=== PATIENT | female | born 1935 | race Caucasian/White ===

== ENCOUNTER 2018-02-17 17:44 | Inpatient (IN) ==
--- NOTE | 2018-02-17 19:05 | Internal Med History&Physical ---
Medical - H&P: [facility] Patient information: Note initiated : 02/17/18 at 7:05 pm Service Date, if different from initiated Date: [] Patient: Melly Bustos a 82 y/o F admitted on for fall, decreased appetite, weakness. Chief Complaint: [] Chief complaint: Fall History of present illness: Ms. Bustos is a 82 year old F with a history of advanced dementia who lives with her . She fell this afternoon and was discovered by her on the floor. Patient was alert and in no loose consciousness however the fall was not witnessed. She apparently lost balance. Patient is a poor historian due to underlying dementia exact precipitant could not be identified. She was brought to [facility] ER due to left hip pain. Initial workup in the ER revealed subcapital left hip fracture and orthopedics were consulted. Hospitalist service was consulted for admission. Evaluation patient is accompanied with her son Travis. He was able to anastomose the questions. Patient is essentially nonverbal. Her dementia has advanced significantly and patient is usually noncommunicative. She has recently stopped eating over the last few days. She only takes liquid diet including boost Ensure. Other than that son does not endorse recent fever, diarrhea, dysuria or headache. He does endorse to couple of falls in the last year and she is barely able to walk without assistance or using a grab bar Review of systems 10 point review systems was performed and is negative except as discussed above Medical - H&P: PMH Medical history: Advanced dementia history of CVA Pertinent family history: Nonrelevant Social history: Lives with her Accompanied by son Travis No History of smoking alcohol Medical - H&P: Meds Home Medications Medication Instructions Recorded Confirmed Type Clopidogrel 75 mg PO DAILY 04/02/15 02/17/18 History Donepezil HCl [Donepezil HCl Odt] 10 mg PO DAILY 04/02/15 02/17/18 History Aspirin [Adult Low Dose Aspirin EC] 81 mg PO DAILY 02/17/18 02/17/18 History Allergies Allergy/AdvReac Type Severity Reaction Status Date / Time No Known Drug Allergies Allergy Unverified 04/02/15 19:06 Medical - H&P: Exam - Constitutional Vitals: Pulse Resp BP Pulse Ox 85 23 H 128/94 97 02/17/18 18:16 02/17/18 18:31 02/17/18 18:31 02/17/18 18:16 General appearance: no acute distress Exam: 5 with symmetrical Oral cavity dry No eardischarge Head normocephalic S1 and S2 regular rhythm ESM grade 1 Diminished breath sounds bases abdomen soft Left lower extremity external rotated and shortened Skin no suspicious lesion Psych alert cooperative Neuro-advanced dementia, higher functions could not be checked Medical - H&P: Reslt - Labs CBC & Chem 7: 02/17/18 19:07 02/17/18 19:07 Medical - H&P: A/P (1) Closed left hip fracture Current visit: Yes Status: Acute * Left hip fracture orthopedics consulted. Keep nothing by mouth. Surgery in a.m. * Pain management on as needed opioids * Preop risk eval-based on our CR I [place] [employer] risk stratification patient is a high risk given history of CVA. No modifiable risk factor. Associated breast was discussed with son Travis. Surgery and anesthesia specific risks will be discussed by individual care providers. * History of dementia continue donepezil * History of CVA continue aspirin and Plavix post surgery * DVT prophylaxis SCDs Plan * Keep nothing by mouth after midnight * Review postop * Pain management
[2018-02-17 19:44] LABS: Basophils # (Auto) 0 K/mcL (0.0-0.3); Basophils % (Auto) 0.2 % (0.0-2.0); Eosinophils # (Auto) 0 K/mcL (0.0-0.7); Eosinophils % (Auto) 0.2 % (0.0-7.0); Granulocytes % (Auto) 84.9 % (38.0-78.0); Lymphocytes # (Auto) 1.3 K/mcL (1.5-4.8); Lymphocytes % (Auto) 10.4 % (15.5-49.0); Mean Cell Volume 78.8 fL (80.0-100.0); Mean Corpuscular HGB Conc 33.1 g/dL (31.0-36.0); Mean Corpuscular Hemoglobin 26.1 pg (26.0-34.0); Monocytes # (Auto) 0.5 K/mcL (0.1-0.9); Monocytes % (Auto) 4.3 % (1.0-12.0); Platelet Count 342 K/mcL (140-440); RBC 4.39 M/mcL (4.00-5.20); Red Cell Distribution Width 17.5 % (11.5-14.5)
[2018-02-17 20:04] LABS: ALT/SGPT 15 U/l (0-40); Albumin 4.3 gm/dL (3.2-5.2); Albumin/Globulin Ratio 1.7 (1.0-2.3); Alkaline Phosphatase 72 U/L (39-117); Blood Urea Nitrogen 13 mg/dl (8-23)
[2018-02-17] MEDS ORDERED: POTASSIUM CHLORIDE 20 MEQ PACKET PO PRN (20:29)
[2018-02-17] MEDS ORDERED: ONDANSETRON 4 MG/2 ML VIAL IV PRN (20:29)
[2018-02-17] MEDS ORDERED: MAGNESIUM SULFATE 2 GM/50 ML BAG IV PRN (20:29)
[2018-02-17] MEDS ORDERED: ACETAMINOPHEN 1,000 MG/100 ML BOTTLE IV PRN (20:29)
[2018-02-17] MEDS ORDERED: guaiFENesin/CODEINE 10 ML UDC PO PRN (20:29)
[2018-02-17] MEDS ORDERED: HYDROmorphone 2 MG/ML VIAL IV PRN (20:29)
[2018-02-17] MEDS ORDERED: HYDROmorphone 2 MG/ML VIAL ONE (20:40)
--- NOTE | 2018-02-17 20:48 | Emergency Department Note ---
General Adult HPI - General Chief complaint: Weakness Stated complaint: fall, decreased appetite, weakness Time Seen by Provider: 02/17/18 18:11 Source: patient, family, EMS Mode of arrival: EMS Limitations: no limitations - History of Present Illness HPI Narrative: 82-year-old female was at home when she tripped and fell landing on her left hip area. She is basically nonverbal with extensive vascular dementia for which she is on Plavix-she has had multiple small strokes in the past. Anyways she does normally walk with assistance of her only. She has been losing weight lately as well. Now she is unwilling to move her left hip and it appears that she has a small lump on the left side of her head as well. She is not able to give me meaningful history or review of systems all of this is from her and her son were here as well for the interview and exam-more extensive history not available as well as patient sees internal medicine Dr. Branham. She was brought in by EMS and they gave her 50 of fentanyl however this made her very sedated. This appears to have worn off and she is a little more agitated here from the pain - Related Data Home Medications Medication Instructions Recorded Confirmed Clopidogrel 75 mg PO DAILY 04/02/15 02/17/18 Donepezil HCl [Donepezil HCl Odt] 10 mg PO DAILY 04/02/15 02/17/18 Aspirin [Adult Low Dose Aspirin EC] 81 mg PO DAILY 02/17/18 02/17/18 Allergies Allergy/AdvReac Type Severity Reaction Status Date / Time No Known Drug Allergies Allergy Unverified 04/02/15 19:06 Review of Systems Limitations: ROS unobtainable due to patients medical condition Past Medical History - Past Medical History Attestation: Yes: The following information was validated with the patient. Medical history: Reports: CVA, dementia, other (dVT) - Social History smoking status: Former smoker Alcohol use: Reports: None Drug use: Reports: none Physical Exam Thin female resting. Somewhat agitated from pain. Not wanting to move her left hip. Normocephalic atraumatic except for dime sized hematoma left frontal area-no abrasion laceration or other concerning features. Conjunctive are clear sclerae nonicteric. No nasal discharge or congestion. She would not open her mouth for me. Neck is supple without lymphadenopathy thyromegaly or carotid bruit. Heart is regular rate and rhythm no murmur appreciated. Lungs are clear to auscultation bilaterally without wheezes rales rhonchi or respiratory distress. Abdomen is soft nontender nondistended. Palpation of the anterior left hip groin area does not elicit tenderness but any movement of the hip does cause significant wincing and guarding. She is able to move herself around in the bed albeit with some difficulty and pain. She is nonverbal and will not talk to me at all. She does not cooperate for my exam however she does not move away from any part of the exam except for the left hip. The left knee is flexed and so I am unable to compare legs or rotation. She has a flat affect and is awake spontaneously opening her eyes. PERRLA. baseline mentation per family Limitations: no limitations Course Vital Signs Pulse Rate 88 02/17/18 17:45 Respiratory Rate 14 02/17/18 17:45 Blood Pressure 142/80 02/17/18 17:45 Pulse Oximetry (%) 96 02/17/18 17:45 Pulse Rate 80 02/17/18 20:01 Respiratory Rate 14 02/17/18 20:01 Blood Pressure 125/61 02/17/18 20:01 Pulse Oximetry (%) 96 02/17/18 20:01 Medical Decision Making - Medical Records Medical records reviewed: Yes I reviewed the patient's medical records. - Lab Data Lab results reviewed: Yes I reviewed the patient's lab results. Result diagrams: 02/17/18 19:07 02/17/18 19:07 Lab Results 02/17/18 02/17/18 Range/Units 19:07 19:07 WBC 12.6 H (4.5-11.0) K/mcL RBC 4.39 (4.00-5.20) M/mcL Hgb 11.5 L (12.0-15.0) g/dL Hct 34.6 L (36.0-48.0) % MCV 78.8 L (80.0-100.0) fL MCH 26.1 (26.0-34.0) pg MCHC 33.1 (31.0-36.0) g/dL RDW 17.5 H (11.5-14.5) % Plt Count 342 (140-440) K/mcL MPV 8.7 (7.4-10.4) fL Gran % 84.9 H (38.0-78.0) % Lymph % (Auto) 10.4 L (15.5-49.0) % [place] % (Auto) 4.3 (1.0-12.0) % Eos % (Auto) 0.2 (0.0-7.0) % Baso % (Auto) 0.2 (0.0-2.0) % Gran # 10.7 H (1.8-8.0) K/mcL Lymph # (Auto) 1.3 L (1.5-4.8) K/mcL [place] # (Auto) 0.5 (0.1-0.9) K/mcL Eos # (Auto) 0 (0.0-0.7) K/mcL Baso # (Auto) 0 (0.0-0.3) K/mcL Sodium 130 L (133-145) mmol/L Potassium 4.0 (3.3-5.1) mmol/L Chloride 90 L (96-108) mmol/L Carbon Dioxide 24 (22-30) mmol/L Anion Gap 16.0 (8-16) BUN 13 (8-23) mg/dl Creatinine 1.3 H (0.6-1.1) mg/dl GFR Calculation 39 Glucose 127 H (70-105) mg/dL Calcium 9.1 (8.6-10.4) mg/dl Total Bilirubin 0.8 (0.0-1.0) mg/dL AST 23 (0-37) U/l ALT 15 (0-40) U/l Alkaline Phosphatase 72 (39-117) U/L Total Protein 6.8 (5.9-8.4) gm/dL Albumin 4.3 (3.2-5.2) gm/dL Globulin 2.5 (2.2-3.7) gm/dL Albumin/Globulin Ratio 1.7 (1.0-2.3) - Radiology Data Radiology results reviewed: Yes I reviewed the patient's radiology results. X-ray of the left hip shows subcapital fracture with anterior displacement Chest x-ray shows breast implants but no acute features Disposition Pt seen by POWERBUILDER/PA only: No Clinical Impression: Hip fracture, left Qualifiers: Encounter type: initial encounter Fracture type: closed Qualified Code(s): S72.002A - Fracture of unspecified part of neck of left femur, initial encounter for closed fracture Summary: Initially worked up for left hip pain secondary to tenderness with movement. She is at baseline in terms of her neurologic status and left head hematoma is very minor. She has not vomited. So, I did not work that up further. After getting her left hip x-ray back which showed fracture subcapital, I discussed the case with Dr. Bianchi, orthopedist health information administrator, who advised me to admit the patient to the hospitalist and he would consult. Because of her comorbidities and age he will discuss further treatment with family. I discussed case with Dr. Goel the hospitalist who agreed to accept patient in transfer. Preoperative laboratory chest x-ray are ordered in anticipation of possible surgery. I did give her a little bit of morphine to help with agitation and pain prior to transfer to the hospital room Disposition: Xfer As Inpt ([facility]) Condition: Fair
[2018-02-17] MEDS: 0.9 % SODIUM CHLORIDE 1,000 ML IV SCH (20:54)
[2018-02-17] MEDS ORDERED: traZODone HCL 50 MG TABLET PO PRN (21:22)
[2018-02-17 22:54] LABS: Appearance,Urine CLOUDY; Bacteria,Urine MANY /hpf (0); Bilirubin,Urine NEG (NEG); Color,Urine YELLOW; Glucose,Urine (UA) NEGATIVE (NEG); Leukocyte Esterase,Urine 500 /uL (NEG); Protein,Urine 100 mg/dL (NEG); Specific Gravity,Urine 1.015 (1.000-1.035); Urine Blood 0.03 mg/dL (<0.03); Urine RBC 25 /hpf (0-1); Urine Squamous Epithelial Cell 0 /hpf (0-4); Urine WBC > 182 /hpf (0-4); Urobilinogen,Urine NEG (NEG)
[2018-02-17] MEDS: 0.9 % SODIUM CHLORIDE 10 ML SYRINGE IV SCH (22:56)
[2018-02-17] MEDS: DONEPEZIL 10 MG TABLET PO SCH (22:56)
[2018-02-17] MEDS: DOCUSATE SODIUM 100 MG CAPSULE PO SCH (22:56)
[2018-02-17] MEDS: SENNOSIDES/DOCUSATE SODIUM 1 TAB TABLET PO SCH (22:56)
[2018-02-18 05:11] LABS: Mean Cell Volume 79.7 fL (80.0-100.0); Mean Corpuscular HGB Conc 32.9 g/dL (31.0-36.0); Mean Corpuscular Hemoglobin 26.2 pg (26.0-34.0); Platelet Count 304 K/mcL (140-440); RBC 4.05 M/mcL (4.00-5.20); Red Cell Distribution Width 17.4 % (11.5-14.5)
[2018-02-18 05:21] LABS: ALT/SGPT 14 U/l (0-40); Albumin 3.8 gm/dL (3.2-5.2); Albumin/Globulin Ratio 1.6 (1.0-2.3); Alkaline Phosphatase 64 U/L (39-117); Bilirubin,Direct < 0.2 mg/dL (0.0-0.3); Blood Urea Nitrogen 11 mg/dl (8-23); Gamma Glutamyl Transpeptidase 9 U/L (5-36); Uric Acid 4.9 mg/dL (2.5-8.0)
--- NOTE | 2018-02-18 07:14 | Consultation ---
DATE OF CONSULTATION: 02/17/2018 IDENTIFICATION: The patient is an 82-year-old lady with dementia. CHIEF COMPLAINT: Left hip fracture. HISTORY: The patient had a fall at home. She had acute onset of pain and inability to weightbear. She presents with a femoral neck fracture. We were called for definitive management. PAST MEDICAL HISTORY: Multiple strokes and dementia, and she is aphasic. PAST SURGICAL HISTORY: Noncontributory to this problem. MEDICATIONS: 1. Plavix. 2. Donepezil. 3. Aspirin. ALLERGIES: None. REVIEW OF SYSTEMS: She has apparently been in generally a good state of health and the balance of 10-point review of systems essentially negative. PHYSICAL EXAMINATION: GENERAL: She is awake and alert. She is aphasic. HEENT: Normocephalic, atraumatic. Pupils round, reactive to light. NECK: Supple without pain on range of motion. HEART: Regular. LUNGS: Clear. ABDOMEN: Benign. LOWER EXTREMITIES: Left lower extremity is shortened and there is pain with any motion. She seems to be grossly without significant neurovascular deficit. IMAGING: Her radiographs demonstrate a femoral neck fracture. IMPRESSION AND PLAN: Femoral neck fracture. We discussed the pros and cons of surgical intervention. Family leans towards proceeding with surgical intervention in the form of a hemiarthroplasty as discussed. Family will discuss this further with the father. We will plan to do this tomorrow. GDKsenia:kristina Job ID: [id number] Doc ID: [id number] Ganesh Bianchi MD
[2018-02-18] MEDS ORDERED: CIPROFLOXACIN 400 MG/200 ML BAG IV ONE (07:40)
--- NOTE | 2018-02-18 07:51 | XRay Report ---
CLINICAL INFORMATION: Preop COMPARISON: None. FINDINGS: Cardiomediastinal silhouette and pulmonary vessels are normal. Lung volumes are elevated suggesting chronic bronchitis. There are scattered small calcified granulomas. No infiltrates or other acute processes. No effusions. Calcified breast implants incidentally noted IMPRESSION: No acute disease - suspect mild chronic bronchitis Interpreted and Authenticated by: Mckinley Rodas 02/18/18
--- NOTE | 2018-02-18 08:05 | XRay Report ---
CLINICAL INFORMATION: Trauma COMPARISON: None. FINDINGS: A mildly impacted, minimally displaced subcapital fracture of the left hip is appreciated. No other osseous normality. Both SI and hip joint showing only mild degeneration. All discs are normal. IMPRESSION: Mildly impacted and minimally displaced acute subcapital fracture - left hip Interpreted and Authenticated by: Mckinley Rodas 02/18/18
[2018-02-18] MEDS: CLOPIDOGREL 75 MG TABLET PO SCH (08:15)
[2018-02-18] MEDS: MULTIVIT,THER IRON,CA,FA & MIN 1 TABLET PO SCH (08:15)
[2018-02-18] MEDS: DOCUSATE SODIUM 100 MG CAPSULE PO SCH ×2 (08:15→20:46)
[2018-02-18] MEDS: ASPIRIN 81 MG TAB.CHEW PO SCH (08:15)
[2018-02-18] MEDS: 0.9 % SODIUM CHLORIDE 10 ML SYRINGE IV SCH ×3 (08:15→23:11)
[2018-02-18] MEDS ORDERED: 0.9 % SODIUM CHLORIDE 250 ML IV SCH (08:30)
[2018-02-18 08:38] LABS: Anisocytosis 1+ (NONE SEEN); Lymphocytes % 8 % (15-49); Monocytes % (Manual) 3 % (1-12); Platelet Estimate NORMAL (NORMAL); RBC Morphology ABNORM (NORMAL); Segmented Neutrophils % 89 % (38-78)
[2018-02-18] MEDS ORDERED: ceFAZolin 1 GM VIAL IV SCH (13:30)
[2018-02-18] MEDS ORDERED: GENTAMICIN SULFATE 800 MG/20 ML VIAL IR ONE (13:46)
[2018-02-18] MEDS ORDERED: ONDANSETRON 4 MG/2 ML VIAL IV ONE (14:50)
[2018-02-18] MEDS ORDERED: MIDAZOLAM 2 MG/2 ML VIAL IV ONE (14:50)
[2018-02-18] MEDS ORDERED: fentaNYL 100 MCG/2 ML VIAL IV ONE (14:50)
[2018-02-18] MEDS ORDERED: PROPOFOL 200 MG/20 ML VIAL IV ONE (14:50)
[2018-02-18] MEDS ORDERED: LIDOCAINE HCL/PF 100 MG/5 ML SYRINGE IV ONE (14:50)
[2018-02-18] MEDS ORDERED: DEXAMETHASONE 10 MG/ML VIAL IV ONE (14:50)
--- NOTE | 2018-02-18 15:25 | Internal Med Progress Note ---
Medical - PN: Subj Patient information: Note initiated : 02/18/18 at 3:23 pm Service Date, if different from initiated Date: [] Patient: Melly Bustos a 82 y/o F admitted on 02/17/18 for Fall, Decreased Appetite, Weakness/Left Hip Fx. Chief Complaint: [] Interval history: Ms. Bustos is a 82 year old F with a history of advanced dementia who lives with her . She fell this afternoon and was discovered by her on the floor. Patient was alert and in no loose consciousness however the fall was not witnessed. She apparently lost balance. Patient is a poor historian due to underlying dementia exact precipitant could not be identified. She was brought to [place] ER due to left hip pain. Initial workup in the ER revealed subcapital left hip fracture and orthopedics were consulted. Hospitalist service was consulted for admission. Evaluation patient is accompanied with her son Travis. He was able to anastomose the questions. Patient is essentially nonverbal. Her dementia has advanced significantly and patient is usually noncommunicative. She has recently stopped eating over the last few days. She only takes liquid diet including boost Ensure. Other than that son does not endorse recent fever, diarrhea, dysuria or headache. He does endorse to couple of falls in the last year and she is barely able to walk without assistance or using a grab bar 02/18 Patient seen examined, no acute overnight issues, pt seen by ortho, family opted for surgical intervention, likely this afternoon. Pt was awake this afternoon, denies any complaints. Pertinent ROS: unable to assess - Constitutional Vitals: Vital Signs Temp Pulse Resp BP Pulse Ox 98.3 F 90 20 153/76 96 02/18/18 11:36 02/18/18 11:36 02/18/18 11:36 02/18/18 11:36 02/18/18 11:36 Period Temp Pulse Resp BP Sys/Vargas Pulse Ox Last 24 Hr 97.6 F-99.8 F 80-91 12-23 108-153/61-94 94-97 Intake and Output 02/18/18 02/18/18 02/18/18 05:59 13:59 21:59 Intake Total 200 / 200 Output Total 290 / 290 1075 / 1075 Balance -290 / -290 -875 / -875 Weight 114 lb Patient Weight 02/19/18 05:59 Weight 114 lb Intake & Output: Intake & Output 02/18/18 02/18/18 02/18/18 05:59 13:59 21:59 Intake Total 200 / 200 Output Total 290 / 290 1075 / 1075 Balance -290 / -290 -875 / -875 Weight 114 lb Intake: IV 200 / 200 Output: Urine Catheter Amount 290 / 290 275 / 275 Void Amount 800 / 800 Other: Meal NPO Exam: Constitutional; Afebrile, cooperative, alert, not in distress. Eyes- No icterus, , No periorbital swelling Neck- Midline trachea, supple Respiratory system: Air Entry equal on both sides, No crackles or wheezing, no rhonchi. ant exam CVS- Rate rhythm regular, S1,S2 heard, no gallop, no rub. Abdomen- Soft nontender abdomen, no organomegaly, no tenderness, no guarding or rigidity, CNC SERVICE ENGINEER- AOOx1, awake alerty obeys commands Medical - PN: Obj Da - Labs CBC & Chem 7: 02/18/18 03:45 02/18/18 03:45 Labs: Abnormal Lab Results 02/18/18 02/18/18 02/17/18 03:45 03:45 22:00 WBC 15.8 H Hgb 10.6 L Hct 32.3 L MCV 79.7 L RDW 17.4 H Gran % Lymph % (Auto) Gran # Lymph # (Auto) Seg Neutrophils % 89 H Lymphocytes % 8 L RBC Morphology Abnorm A Anisocytosis 1+ A Microcytosis 1+ A Sodium 129 L Chloride 94 L Creatinine Glucose 106 H Phosphorus 2.6 L Urine Protein 100 A Urine Ketones 20 A Urine Occult Blood 0.03 A Urine Nitrate Pos A Ur Leukocyte Esterase 500 A Urine RBC 25 H Urine WBC > 182 H Urine Bacteria Many A 02/17/18 02/17/18 19:07 19:07 WBC 12.6 H Hgb 11.5 L Hct 34.6 L MCV 78.8 L RDW 17.5 H Gran % 84.9 H Lymph % (Auto) 10.4 L Gran # 10.7 H Lymph # (Auto) 1.3 L Seg Neutrophils % Lymphocytes % RBC Morphology Anisocytosis Microcytosis Sodium 130 L Chloride 90 L Creatinine 1.3 H Glucose 127 H Phosphorus Urine Protein Urine Ketones Urine Occult Blood Urine Nitrate Ur Leukocyte Esterase Urine RBC Urine WBC Urine Bacteria Meds: Medications Acetaminophen (Tylenol) 650 mg PO Q4-6HP PRN PRN Reason: PAIN/FEVER > 101 Aspirin (Aspirin) 81 mg PO DAILY [facility] Last Admin: 02/18/18 08:15 Dose: Not Given Ciprofloxacin (Cipro) 500 mg PO BID [facility] Clopidogrel Bisulfate (Plavix) 75 mg PO DAILY [facility] Last Admin: 02/18/18 08:15 Dose: Not Given Docusate Sodium (Colace) 100 mg PO BID [facility] Last Admin: 02/18/18 08:15 Dose: Not Given Donepezil HCl (Aricept) 10 mg PO [facility] Last Admin: 02/17/18 22:56 Dose: Not Given Guaifenesin/Codeine Phosphate (Robitussin Ac) 10 ml PO Q4HP PRN PRN Reason: Cough Hydromorphone HCl (Dilaudid) 0 mg IV Q4HP PRN PRN Reason: PAIN LEVEL > 6 Magnesium Sulfate (Magnesium Sulfate) 2 gm in 50 mls @ 50 mls/hr IV UD PRN PRN Reason: MG = or < 1.7 Sodium Chloride (Sodium Chloride 0.9%) 1,000 mls @ 50 mls/hr IV .Q20H [facility] Stop: 02/20/18 09:21 Last Admin: 02/17/18 20:54 Dose: 50 mls/hr Acetaminophen (Ofirmev) 1,000 mg in 100 mls @ 200 mls/hr IV Q6HP PRN PRN Reason: PAIN/FEVER > 101 Sodium Chloride (Sodium Chloride 0.9%) 250 mls @ 20 mls/hr IV .[id number] [facility] Stop: 02/18/18 20:59 Last Admin: 02/18/18 12:07 Dose: Not Given Iron Carb/Multivit/[place]/Folic Acid (Multivitamin W/Minerals) 1 tab PO DAILY [facility] Last Admin: 02/18/18 08:15 Dose: Not Given Ondansetron HCl (Zofran) 4 mg IV Q4-6HP PRN PRN Reason: Nausea And Vomiting Polyethylene Glycol (Miralax) 17 gm PO DAILYP PRN PRN Reason: Constipation Potassium Chloride (Klor-Con) 40 meq PO DAILYP PRN PRN Reason: K+ < 3.5 Senna/Docusate Sodium (Senna Plus Tablet) 1 tab PO [facility] Last Admin: 02/17/18 22:56 Dose: Not Given Sodium Chloride (Saline Flush) 10 ml IV Q8 [facility] Last Admin: 02/18/18 08:15 Dose: Not Given Trazodone HCl (Desyrel) 50 mg PO HSP PRN PRN Reason: Insomnia Medical - PN: A/P - Time Spent With Patient Total time spent is greater than 50% in coordination of care (as documented) at patient's floor/unit and/or counseling patient: - Narrative A/P Narrative: A/P Left hip fracture- pt to have sx by othro today, pain management DVT prophylaxis per ortho Dementia- severe, resume home meds, pt is alert it seems and albe to answer some questions but not sure how much she comphrenends. at baseline not doing so well as per history, no family by bed side during my rounds h/o CVA- stable conitnue asp, plavix post op DVT scd npo for now Medical - PN: Qual - VTE Deep Vein Thrombosis/Pulmonary Embolism Present on Admission: No
[2018-02-18] MEDS ORDERED: IPRATROPIUM/ALBUTEROL 3 ML AMPUL.NEB NEB PRN (15:40)
[2018-02-18] MEDS ORDERED: ONDANSETRON 4 MG/2 ML VIAL IV PRN (15:40)
[2018-02-18] MEDS ORDERED: BENZOCAINE/MENTHOL 1 LOZENGE PO PRN (15:40)
[2018-02-18] MEDS ORDERED: diphenhydrAMINE 50 MG/ML VIAL IV PRN (15:40)
[2018-02-18] MEDS ORDERED: LACTATED RINGERS 250 ML IV PRN (15:40)
[2018-02-18] MEDS ORDERED: PROMETHAZINE 25 MG/ML VIAL IV PRN (15:40)
[2018-02-18] MEDS ORDERED: NALOXONE HCL 0.4 MG/ML VIAL IV PRN (15:40)
[2018-02-18] MEDS ORDERED: FLUMAZENIL 0.1 MG/ML ML IV PRN (15:40)
[2018-02-18] MEDS ORDERED: ACETAMINOPHEN 1,000 MG/100 ML BOTTLE IV ONE (15:40)
[2018-02-18] MEDS ORDERED: fentaNYL 100 MCG/2 ML VIAL IV PRN (15:40)
[2018-02-18] MEDS ORDERED: LACTATED RINGERS 1,000 ML IV SCH (15:45)
--- NOTE | 2018-02-18 17:06 | Brief Operative Note ---
Date of procedure: 02/18/18 Pre-op diagnosis: L hip fractue Post-op diagnosis: same Procedure: hemiarthroplasty Grafts/Implants: Yes (depuy) Anesthesia: GETA Complications: none Surgeon: Ganesh Bianchi Communications Equipment Operator: Cornell Hill Estimated blood loss (cc): 75 Condition: stable Disposition: PACU
--- NOTE | 2018-02-18 17:47 | XRay Report ---
CLINICAL INFORMATION: Follow-up subcapital fracture. COMPARISON: None. FINDINGS: Hip prostheses is anatomically aligned. Mild degenerative change noted in both SI and right hip joints. No osseous abnormality IMPRESSION: Negative Interpreted and Authenticated by: Mckinley Rodas 02/18/18
[2018-02-18] MEDS: 0.9 % SODIUM CHLORIDE 1,000 ML IV SCH (18:28)
[2018-02-18] MEDS: CIPROFLOXACIN 500 MG TABLET PO SCH (20:46)
[2018-02-18] MEDS: DONEPEZIL 10 MG TABLET PO SCH (20:46)
[2018-02-18] MEDS: SENNOSIDES/DOCUSATE SODIUM 1 TAB TABLET PO SCH ×2 (20:46)
[2018-02-18] MEDS ORDERED: HEPARIN 5,000 UNIT/ML VIAL SQ SCH (21:00)
[2018-02-19 05:27] LABS: Mean Cell Volume 79.1 fL (80.0-100.0); Mean Corpuscular HGB Conc 32.9 g/dL (31.0-36.0); Platelet Count 266 K/mcL (140-440); RBC 3.86 M/mcL (4.00-5.20)
[2018-02-19] MEDS: 0.9 % SODIUM CHLORIDE 10 ML SYRINGE IV SCH ×2 (05:40→13:37)
[2018-02-19 06:34] LABS: ALT/SGPT 16 U/l (0-40); Albumin 3.3 gm/dL (3.2-5.2); Albumin/Globulin Ratio 1.5 (1.0-2.3); Alkaline Phosphatase 62 U/L (39-117); Bilirubin,Direct 0.2 mg/dL (0.0-0.3); Blood Urea Nitrogen 15 mg/dl (8-23); Gamma Glutamyl Transpeptidase 7 U/L (5-36); Uric Acid 4.2 mg/dL (2.5-8.0)
--- NOTE | 2018-02-19 07:05 | Operative Note ---
DATE OF OPERATION: 02/18/2018 PREOPERATIVE DIAGNOSIS: Left transcervical/subcapital femoral neck fracture, displaced. POSTOPERATIVE DIAGNOSIS: Left transcervical/subcapital femoral neck fracture, displaced. OPERATION PROPOSED: Left hip hemiarthroplasty. OPERATION PERFORMED: Left hip hemiarthroplasty. OPERATING SURGEON: Juan M Bianchi MD CSR: Cornell Hill PA-C INDICATIONS: This is a lady with a displaced femoral neck fracture. We have reviewed treatment options and elected to proceed with a hemiarthroplasty. OPERATION IN DETAIL: Informed consent was obtained. She was taken to the operating room where she was provided with appropriate anesthetic and prophylactic antibiotics. She was carefully positioned. Her hip was prepped sterilely. A standard posterior approach to the hip was performed. I dissected through the iliotibial band. I cut and released short external rotators. I cut and T'd the hip capsule. I then refined the femoral neck cut, 1 cm above the lesser trochanter. I then sequentially reamed and broached. I then prepared the canal and placed a distal faulkner restrictor. A [place] stem size [address]. I trialed head and neck components and then reduced into place a head ball with a -3 neck. The hip seemed quite stable. I irrigated thoroughly. I repaired the hip capsule. I closed the iliotibial band with #1 Vicryl and a running Stratafix suture. Wounds were irrigated additionally. I closed the skin with 2-0 inverted deep dermal and louisa. Procedure was tolerated well. No complications. Estimated blood loss is 50 mL. GDD:kristina Job ID: [id number] Doc ID: [id number] Ganesh Bianchi MD
[2018-02-19 07:55] LABS: Anisocytosis 1+ (NONE SEEN); Band Neutrophils % 4 % (0-10); Hypochromasia 1+ (NONE SEEN); Lymphocytes % 1 % (15-49); Monocytes % (Manual) 6 % (1-12); Platelet Estimate NORMAL (NORMAL); RBC Morphology ABNORM (NORMAL); Segmented Neutrophils % 89 % (38-78)
[2018-02-19] MEDS: CIPROFLOXACIN 500 MG TABLET PO SCH ×2 (09:17→21:21)
[2018-02-19] MEDS: MULTIVIT,THER IRON,CA,FA & MIN 1 TABLET PO SCH (09:17)
[2018-02-19] MEDS: DOCUSATE SODIUM 100 MG CAPSULE PO SCH ×2 (09:18→21:21)
[2018-02-19] MEDS: ACETAMINOPHEN 325 MG TABLET PO PRN (09:18)
[2018-02-19] MEDS: ASPIRIN 81 MG TAB.CHEW PO SCH (09:19)
[2018-02-19] MEDS: CLOPIDOGREL 75 MG TABLET PO SCH (09:20)
[2018-02-19] MEDS ORDERED: HYDROcodone/APAP 5/325MG TABLET PO PRN (09:24)
--- NOTE | 2018-02-19 11:05 | Internal Med Progress Note ---
Medical - PN: Subj Patient information: Note initiated : 02/19/18 at 11:03 am Service Date, if different from initiated Date: [] Patient: Melly Bustos a 82 y/o F admitted on 02/17/18 for Fall, Decreased Appetite, Weakness/Left Hip Fx. Chief Complaint: [] Interval history: Ms. Bustos is a 82 year old F with a history of advanced dementia who lives with her . She fell this afternoon and was discovered by her on the floor. Patient was alert and in no loose consciousness however the fall was not witnessed. She apparently lost balance. Patient is a poor historian due to underlying dementia exact precipitant could not be identified. She was brought to [place] ER due to left hip pain. Initial workup in the ER revealed subcapital left hip fracture and orthopedics were consulted. Hospitalist service was consulted for admission. Evaluation patient is accompanied with her son Travis. He was able to anastomose the questions. Patient is essentially nonverbal. Her dementia has advanced significantly and patient is usually noncommunicative. She has recently stopped eating over the last few days. She only takes liquid diet including boost Ensure. Other than that son does not endorse recent fever, diarrhea, dysuria or headache. He does endorse to couple of falls in the last year and she is barely able to walk without assistance or using a grab bar 02/18 Patient seen examined, no acute overnight issues, pt seen by ortho, family opted for surgical intervention, likely this afternoon. Pt was awake this afternoon, denies any complaints. 02/19 patient seen examined, no acute overnight issues, pt sitting in chair had her breakfast, post op day 1 Denies any complaints, able to speak and follow some commands start on lovenox low dose 30mg daily for DVT prophylaxis, working with PT ortho following cipro for UTI cultures pending. Pertinent ROS: Denies headache, dizziness Denies chest pain, palpitations Denies cough or shortness of breath Denies abdominal pain, nausea or vomiting. - Constitutional Vitals: Vital Signs Temp Pulse Resp BP Pulse Ox 98.7 F 108 H 20 115/78 97 02/19/18 08:31 02/19/18 08:31 02/19/18 08:31 02/19/18 08:31 02/19/18 08:31 Period Temp Pulse Resp BP Sys/Vargas Pulse Ox Last 24 Hr 97.6 F-98.7 F 67-108 11-20 93-164/58-82 94-100 Intake and Output 02/18/18 02/19/18 02/19/18 21:59 05:59 13:59 Intake Total 1940 / 1940 150 / 150 Output Total 200 / 200 450 / 450 Balance 1740 / 1740 -450 / -450 150 / 150 Weight 116 lb Intake & Output: Intake & Output 02/18/18 02/19/18 02/19/18 21:59 05:59 13:59 Intake Total 1940 / 1940 150 / 150 Output Total 200 / 200 450 / 450 Balance 1740 / 1740 -450 / -450 150 / 150 Weight 116 lb Intake: IV 1700 / 1700 Sodium Chloride 0.9% 1,000 ml @ 1000 / 1000 50 mls/hr IV .Q20H [facility] Rx#: [id number] Oral 240 / 240 150 / 150 Output: Urine Catheter Amount 450 / 450 Estimated Blood Loss 200 / 200 Other: Meal Breakfast Percent of Meal Consumed 75% Exam: Constitutional; Afebrile, cooperative, alert, not in distress. Respiratory system: Air Entry equal on both sides, No crackles or wheezing, no rhonchi. CVS- Rate rhythm regular, S1,S2 heard, no gallop, no rub. Abdomen- Soft nontender abdomen, no organomegaly, no tenderness, no guarding or rigidity, SALESPERSON HEARING AIDS- AOOx1, moving all extremities, no gross focal deficit noted. Medical - PN: Obj Da - Labs CBC & Chem 7: 02/19/18 03:40 02/19/18 03:40 Labs: Abnormal Lab Results 02/19/18 02/19/18 02/18/18 03:40 03:40 03:45 WBC 15.9 H RBC 3.86 L Hgb 10.0 L Hct 30.5 L MCV 79.1 L RDW 18.0 H Gran % Lymph % (Auto) Gran # Lymph # (Auto) Seg Neutrophils % 89 H Lymphocytes % 1 L RBC Morphology Abnorm A Hypochromasia 1+ A Anisocytosis 1+ A Microcytosis 1+ A Sodium 131 L 129 L Chloride 95 L 94 L Carbon Dioxide 21 L Creatinine Glucose 106 H Phosphorus 2.0 L 2.6 L Lactate Dehydrogenase 258 H Total Protein 5.5 L Urine Protein Urine Ketones Urine Occult Blood Urine Nitrate Ur Leukocyte Esterase Urine RBC Urine WBC Urine Bacteria 02/18/18 02/17/18 02/17/18 03:45 22:00 19:07 WBC 15.8 H RBC Hgb 10.6 L Hct 32.3 L MCV 79.7 L RDW 17.4 H Gran % Lymph % (Auto) Gran # Lymph # (Auto) Seg Neutrophils % 89 H Lymphocytes % 8 L RBC Morphology Abnorm A Hypochromasia Anisocytosis 1+ A Microcytosis 1+ A Sodium 130 L Chloride 90 L Carbon Dioxide Creatinine 1.3 H Glucose 127 H Phosphorus Lactate Dehydrogenase Total Protein Urine Protein 100 A Urine Ketones 20 A Urine Occult Blood 0.03 A Urine Nitrate Pos A Ur Leukocyte Esterase 500 A Urine RBC 25 H Urine WBC > 182 H Urine Bacteria Many A 02/17/18 19:07 WBC 12.6 H RBC Hgb 11.5 L Hct 34.6 L MCV 78.8 L RDW 17.5 H Gran % 84.9 H Lymph % (Auto) 10.4 L Gran # 10.7 H Lymph # (Auto) 1.3 L Seg Neutrophils % Lymphocytes % RBC Morphology Hypochromasia Anisocytosis Microcytosis Sodium Chloride Carbon Dioxide Creatinine Glucose Phosphorus Lactate Dehydrogenase Total Protein Urine Protein Urine Ketones Urine Occult Blood Urine Nitrate Ur Leukocyte Esterase Urine RBC Urine WBC Urine Bacteria Meds: Medications Acetaminophen (Tylenol) 650 mg PO Q4-6HP PRN PRN Reason: PAIN/FEVER > 101 Last Admin: 02/19/18 09:18 Dose: 650 mg Hydrocodone Bitart/Acetaminophen ([place] 5/325mg) 1 tab PO Q4HP PRN PRN Reason: moderate pain Aspirin (Aspirin) 81 mg PO DAILY [facility] Last Admin: 02/19/18 09:19 Dose: 81 mg Ciprofloxacin (Cipro) 500 mg PO BID [facility] Last Admin: 02/19/18 09:17 Dose: 500 mg Clopidogrel Bisulfate (Plavix) 75 mg PO DAILY [facility] Last Admin: 02/19/18 09:20 Dose: 75 mg Docusate Sodium (Colace) 100 mg PO BID [facility] Last Admin: 02/19/18 09:18 Dose: 100 mg Donepezil HCl (Aricept) 10 mg PO HS [facility] Last Admin: 02/18/18 20:46 Dose: 10 mg Enoxaparin Sodium (Lovenox) 30 mg SQ DAILY [facility] Guaifenesin/Codeine Phosphate (Robitussin Ac) 10 ml PO Q4HP PRN PRN Reason: Cough Hydromorphone HCl (Dilaudid) 0 mg IV Q4HP PRN PRN Reason: PAIN LEVEL > 6 Magnesium Sulfate (Magnesium Sulfate) 2 gm in 50 mls @ 50 mls/hr IV UD PRN PRN Reason: MG = or < 1.7 Sodium Chloride (Sodium Chloride 0.9%) 1,000 mls @ 50 mls/hr IV .Q20H [facility] Stop: 02/20/18 09:21 Last Admin: 02/18/18 18:28 Dose: 50 mls/hr Acetaminophen (Ofirmev) 1,000 mg in 100 mls @ 200 mls/hr IV Q6HP PRN PRN Reason: PAIN/FEVER > 101 Iron Carb/Multivit/Take Away Worker/Folic Acid (Multivitamin W/Minerals) 1 tab PO DAILY [facility] Last Admin: 02/19/18 09:17 Dose: 1 tab Ondansetron HCl (Zofran) 4 mg IV Q4-6HP PRN PRN Reason: Nausea And Vomiting Polyethylene Glycol (Miralax) 17 gm PO DAILYP PRN PRN Reason: Constipation Potassium Chloride (Klor-Con) 40 meq PO DAILYP PRN PRN Reason: K+ < 3.5 Senna/Docusate Sodium (Senna Plus Tablet) 1 tab PO HS [facility] Last Admin: 02/18/18 20:46 Dose: Not Given Sodium Chloride (Saline Flush) 10 ml IV Q8 [facility] Last Admin: 02/19/18 05:40 Dose: Not Given Trazodone HCl (Desyrel) 50 mg PO HSP PRN PRN Reason: Insomnia Medical - PN: A/P - Time Spent With Patient Total time spent is greater than 50% in coordination of care (as documented) at patient's floor/unit and/or counseling patient: - Narrative A/P Narrative: A/P Left hip fracture- pt to have sx by othro today, pain adequately controlled, on tylenol, hydrocodone, prn dilaudid DVT - lovnoex ,30mg daily Dementia- severe home meds resumed, able to communicate somewhat, ST Eval UTI- on cipro, urine cx pending. h/o CVA- stable conitnue asp, plavix post op DVT scd Medical - PN: Qual - VTE Deep Vein Thrombosis/Pulmonary Embolism Present on Admission: No
[2018-02-19] MEDS: ENOXAPARIN 30 MG/0.3 ML SYRINGE SQ SCH (11:45)
--- NOTE | 2018-02-19 11:51 | Orthopedic Progress Note ---
Subjective Patient information: Note initiated : 02/19/18 at 11:49 am Service Date, if different from initiated Date: [] Patient: Melly Bustos 82 y/o F admitted on 02/17/18 for Fall, Decreased Appetite, Weakness/Left Hip Fx. Chief Complaint: [] no new ortho problems Principal diagnosis: hip fracture Objective Vital signs: Vital Signs Temp Pulse Pulse Resp BP Pulse Ox 02/19/18 11:34 97.1 F 87 18 119/71 96 02/19/18 08:31 98.7 F 108 H 20 115/78 97 02/19/18 04:00 97.6 F 92 H 18 122/80 95 02/18/18 23:55 97.7 F 88 16 106/68 94 02/18/18 23:13 72 18 98 02/18/18 19:03 98.3 F 68 18 100/60 97 02/18/18 18:48 71 96/60 96 02/18/18 18:33 72 107/61 97 02/18/18 18:18 82 130/76 98 02/18/18 18:15 75 124/76 97 02/18/18 18:00 68 98/61 98 02/18/18 17:45 68 93/58 97 02/18/18 17:30 67 101/61 97 02/18/18 17:15 75 131/80 96 02/18/18 17:02 97.6 F 78 16 134/76 96 02/18/18 17:00 79 134/76 96 02/18/18 16:47 98.2 F 76 16 159/73 95 02/18/18 16:40 83 14 144/69 96 02/18/18 16:33 90 14 146/75 97 02/18/18 16:28 95 H 16 148/79 97 02/18/18 16:23 97 H 15 164/78 97 02/18/18 16:18 92 H 15 162/66 100 02/18/18 16:13 93 H 13 157/82 100 02/18/18 16:08 68 11 L 113/60 99 02/18/18 16:03 98.1 F 67 12 124/61 99 Intake and Output 02/18/18 02/19/18 02/19/18 21:59 05:59 13:59 Intake Total 1940 / 1940 150 / 150 Output Total 200 / 200 450 / 450 Balance 1740 / 1740 -450 / -450 150 / 150 Intake: IV 1700 / 1700 Sodium Chloride 0.9% 1,000 ml @ 1000 / 1000 50 mls/hr IV .Q20H [facility] Rx#: [id number] Oral 240 / 240 150 / 150 Output: Urine Catheter Amount 450 / 450 Estimated Blood Loss 200 / 200 Other: Meal Breakfast Percent of Meal Consumed 75% Weight 116 lb Intake & Output: Intake & Output 02/18/18 02/19/18 02/19/18 21:59 05:59 13:59 Intake Total 1940 / 1940 150 / 150 Output Total 200 / 200 450 / 450 Balance 1740 / 1740 -450 / -450 150 / 150 Weight 116 lb Intake: IV 1700 / 1700 Sodium Chloride 0.9% 1,000 ml @ 1000 / 1000 50 mls/hr IV .Q20H [facility] Rx#: [id number] Oral 240 / 240 150 / 150 Output: Urine Catheter Amount 450 / 450 Estimated Blood Loss 200 / 200 Other: Meal Breakfast Percent of Meal Consumed 75% Dressing: Yes clean, Yes dry Weight bearing status: full Neurological exam IM: Yes neurovascular intact - Labs CBC & BMP: 02/19/18 03:40 02/19/18 03:40 Labs: Orthopedic Labs 02/18/18 10:17 POC PT 12.8 POC INR 1.1 02/19/18 02/18/18 02/17/18 03:40 03:45 19:07 Hgb 10.0 L 10.6 L 11.5 L Hct 30.5 L 32.3 L 34.6 L Assessment and Plan (1) Hip fracture, left mobilize dc planning Status: Acute Qualifiers: Encounter type: initial encounter Fracture type: closed Qualified Code(s) : S72.002A - Fracture of unspecified part of neck of left femur, initial encounter for closed fracture
[2018-02-19] MEDS: SENNOSIDES/DOCUSATE SODIUM 1 TAB TABLET PO SCH (21:21)
[2018-02-19] MEDS: DONEPEZIL 10 MG TABLET PO SCH (21:21)
[2018-02-20] MEDS: 0.9 % SODIUM CHLORIDE 10 ML SYRINGE IV SCH ×4 (00:38→20:25)
[2018-02-20 05:37] LABS: Mean Cell Volume 78.7 fL (80.0-100.0); Mean Corpuscular HGB Conc 33.1 g/dL (31.0-36.0); Platelet Count 273 K/mcL (140-440); RBC 3.64 M/mcL (4.00-5.20); Red Cell Distribution Width 17.9 % (11.5-14.5)
[2018-02-20 06:20] LABS: ALT/SGPT 16 U/l (0-40); Albumin 3.2 gm/dL (3.2-5.2); Albumin/Globulin Ratio 1.5 (1.0-2.3); Alkaline Phosphatase 77 U/L (39-117); Bilirubin,Direct < 0.2 mg/dL (0.0-0.3); Blood Urea Nitrogen 18 mg/dl (8-23); Gamma Glutamyl Transpeptidase 8 U/L (5-36)
[2018-02-20 07:48] LABS: Anisocytosis 1+ (NONE SEEN); Band Neutrophils % 1 % (0-10); Lymphocytes % 14 % (15-49); Monocytes % (Manual) 1 % (1-12); Ovalocytes FEW (NONE SEEN); Platelet Estimate NORMAL (NORMAL); RBC Morphology ABNORM (NORMAL); Segmented Neutrophils % 84 % (38-78)
[2018-02-20] MEDS: ACETAMINOPHEN 325 MG TABLET PO PRN (09:12)
[2018-02-20] MEDS: CIPROFLOXACIN 500 MG TABLET PO SCH (09:12)
[2018-02-20] MEDS: CLOPIDOGREL 75 MG TABLET PO SCH (09:12)
[2018-02-20] MEDS: MULTIVIT,THER IRON,CA,FA & MIN 1 TABLET PO SCH (09:12)
[2018-02-20] MEDS: ASPIRIN 81 MG TAB.CHEW PO SCH (09:12)
[2018-02-20] MEDS: ENOXAPARIN 30 MG/0.3 ML SYRINGE SQ SCH (09:12)
[2018-02-20] MEDS: DOCUSATE SODIUM 100 MG CAPSULE PO SCH ×2 (09:12→20:25)
--- NOTE | 2018-02-20 09:43 | Orthopedic Progress Note ---
Subjective Patient information: Note initiated : 02/20/18 at 9:38 am Service Date, if different from initiated Date: [] Patient: Melly Bustos 82 y/o F admitted on 02/17/18 for Fall, Decreased Appetite, Weakness/Left Hip Fx. Chief Complaint: [pain is 3-5 and not eating well but slow to progress with pt ] Principal diagnosis: hip fracture Objective Vital signs: Vital Signs Temp Pulse Resp BP Pulse Ox 02/20/18 07:36 98.5 F 98 H 24 H 130/71 95 02/20/18 03:13 98.8 F 93 H 16 105/68 96 02/20/18 00:00 98.4 F 90 16 115/66 96 02/19/18 20:00 98.4 F 110 H 18 115/59 96 02/19/18 16:04 98.1 F 97 H 18 130/74 96 02/19/18 11:34 97.1 F 87 18 119/71 96 Intake and Output 02/19/18 02/20/18 02/20/18 21:59 05:59 13:59 Intake Total 1040 / 1040 300 / 300 Output Total 2 2 Balance 1040 / 1040 298 / 298 -1 / -1 Intake: Oral 1040 / 1040 300 / 300 Output: # of times incontinent of urine 2 Other: # Voids 1 Weight 118 lb 8 oz Intake & Output: Intake & Output 02/19/18 02/20/18 02/20/18 21:59 05:59 13:59 Intake Total 1040 / 1040 300 / 300 Output Total 2 Balance 1040 / 1040 298 / 298 -1 / -1 Weight 118 lb 8 oz Intake: Oral 1040 / 1040 300 / 300 Output: # of times incontinent of urine / 2 Other: # Voids 1 Incision: Yes healing Incision clean and dry: Yes Dressing: Yes clean Weight bearing status: full Neurological exam IM: Yes alert, Yes altered, No oriented X3 (plan is to dc care center on thursday for a feww weeks.) Extremities exam IM: Yes Foot pink and warm (plan is to dc to care center on thursday) - Labs CBC & BMP: 02/20/18 03:50 02/20/18 03:50 Labs: Orthopedic Labs 02/18/18 10:17 POC PT 12.8 POC INR 1.1 02/20/18 02/19/18 02/18/18 03:50 03:40 03:45 Hgb 9.5 L 10.0 L 10.6 L Hct 28.6 L 30.5 L 32.3 L 02/17/18 19:07 Hgb 11.5 L Hct 34.6 L
[2018-02-20] MEDS ORDERED: 0.9 % SODIUM CHLORIDE 1,000 ML IV SCH (10:30)
[2018-02-20] MEDS ORDERED: IPRATROPIUM/ALBUTEROL 3 ML AMPUL.NEB NEB ONE (10:42)
[2018-02-20] MEDS ORDERED: LORazepam 2 MG/ML VIAL IV PRN (10:43)
[2018-02-20] MEDS: IPRATROPIUM/ALBUTEROL 3 ML AMPUL.NEB NEB SCH ×5 (10:49→23:10)
[2018-02-20] MEDS ORDERED: MAGNESIUM SULFATE 2 GM/50 ML BAG IV ONE (11:00)
[2018-02-20] MEDS: PANTOPRAZOLE 40 MG VIAL IV SCH ×2 (11:01→16:45)
[2018-02-20 11:05] LABS: Basophils # (Auto) 0 K/mcL (0.0-0.3); Basophils % (Auto) 0.2 % (0.0-2.0); Eosinophils # (Auto) 0 K/mcL (0.0-0.7); Eosinophils % (Auto) 0.2 % (0.0-7.0); Granulocytes % (Auto) 84.1 % (38.0-78.0); Lymphocytes # (Auto) 2.3 K/mcL (1.5-4.8); Lymphocytes % (Auto) 10.1 % (15.5-49.0); Mean Corpuscular HGB Conc 32.7 g/dL (31.0-36.0); Mean Corpuscular Hemoglobin 26.1 pg (26.0-34.0); Monocytes # (Auto) 1.3 K/mcL (0.1-0.9); Monocytes % (Auto) 5.4 % (1.0-12.0); Platelet Count 344 K/mcL (140-440); RBC 4.19 M/mcL (4.00-5.20); Red Cell Distribution Width 18.1 % (11.5-14.5)
[2018-02-20] MEDS: cefTRIAXone 1 GM VIAL IV SCH (11:13)
[2018-02-20] MEDS: levETIRAcetam 500 MG in 0.9 % SODIUM CHLORIDE 100 ML IV SCH ×2 (11:23→20:25)
[2018-02-20 11:25] LABS: ALT/SGPT 21 U/l (0-40); Albumin 3.6 gm/dL (3.2-5.2); Albumin/Globulin Ratio 1.4 (1.0-2.3); Alkaline Phosphatase 76 U/L (39-117); Bilirubin,Direct < 0.2 mg/dL (0.0-0.3); Blood Urea Nitrogen 20 mg/dl (8-23); Gamma Glutamyl Transpeptidase 8 U/L (5-36); Uric Acid 4.3 mg/dL (2.5-8.0)
--- NOTE | 2018-02-20 12:16 | Cat Scan Report ---
CLINICAL INFORMATION: Seizure - acute mental status change COMPARISON: None. TECHNIQUE: 2.5 mm helical slices were obtained in the skull base to vertex. Following reconstruction, axial reformatted images were reviewed at bone and parenchymal windows. The exam was performed using radiation dose optimization techniques including, but not limited to, automated exposure control, adjustment of the mA and/or kV according to patient size and use of iterative reconstruction technique. FINDINGS: The ventricles, sulci, fissures, and cisterns are symmetrically enlarged compatible with moderate atrophy - no extra-axial fluid collection or mass appreciated. Moderate chronic ischemic changes noted in the deep cerebral white matter. 1 cm remote lacunar infarcts in the right thalamus and 2 cm lacunar infarct in the left caudate nucleus anterior limb left internal capsule capsule. There is no intracerebral hemorrhage, mass effect or edema. Bone windows show no osseous abnormality. Mild left mastoiditis noted IMPRESSION: Moderate atrophy with chronic ischemic changes in the deep cerebral white matter and remote lacunar infarcts in the basal ganglia. No acute disease. Mild left mastoiditis Interpreted and Authenticated by: Mckinley Rodas 02/20/18
--- NOTE | 2018-02-20 14:36 | Internal Med Progress Note ---
Medical - PN: Subj Patient information: Note initiated : 02/20/18 at 2:33 pm Service Date, if different from initiated Date: [] Patient: Melly Bustos a 82 y/o F admitted on 02/17/18 for Fall, Decreased Appetite, Weakness/Left Hip Fx. Chief Complaint: [] Interval history: Ms. Bustos is a 82 year old F with a history of advanced dementia who lives with her . She fell this afternoon and was discovered by her on the floor. Patient was alert and in no loose consciousness however the fall was not witnessed. She apparently lost balance. Patient is a poor historian due to underlying dementia exact precipitant could not be identified. She was brought to [place] ER due to left hip pain. Initial workup in the ER revealed subcapital left hip fracture and orthopedics were consulted. Hospitalist service was consulted for admission. Evaluation patient is accompanied with her son Travis. He was able to anastomose the questions. Patient is essentially nonverbal. Her dementia has advanced significantly and patient is usually noncommunicative. She has recently stopped eating over the last few days. She only takes liquid diet including boost Ensure. Other than that son does not endorse recent fever, diarrhea, dysuria or headache. He does endorse to couple of falls in the last year and she is barely able to walk without assistance or using a grab bar 02/18 Patient seen examined, no acute overnight issues, pt seen by ortho, family opted for surgical intervention, likely this afternoon. Pt was awake this afternoon, denies any complaints. 02/19 patient seen examined, no acute overnight issues, pt sitting in chair had her breakfast, post op day 1 Denies any complaints, able to speak and follow some commands start on lovenox low dose 30mg daily for DVT prophylaxis, working with PT ortho following cipro for UTI cultures pending. 02/20 Pt seen examined, this AM was doing well, later in artur morning she became unreponsive ,stiff, with rolling of eyes backwards. slowly recovered, follwoed by significant vomiting, and food eaten yesterday also coming out. Head CT neg for acute issues pt prolactin elevated, clinically seizure IV keppra ordered NG tube placed given persistent vomiting, family at bedside, updated Pertinent ROS: unable. - Constitutional Vitals: Vital Signs Temp Pulse Resp BP Pulse Ox 97.5 F 81 14 118/75 97 02/20/18 12:46 02/20/18 12:46 02/20/18 12:46 02/20/18 12:46 02/20/18 12:46 Period Temp Pulse Resp BP Sys/Vargas Pulse Ox Last 24 Hr 97.5 F-98.8 F 57-110 14-24 104-130/59-75 94-97 Intake and Output 02/20/18 02/20/18 02/20/18 05:59 13:59 21:59 Intake Total 300 / 300 155 / 155 Output Total 2 / 2 102 / 102 Balance 298 / 298 53 / 53 Intake & Output: Intake & Output 02/20/18 02/20/18 02/20/18 05:59 13:59 21:59 Intake Total 300 / 300 155 / 155 Output Total 2 / 2 102 / 102 Balance 298 / 298 53 / 53 Intake: IV 155 / 155 Keppra 500 mg In Sodium 105 / 105 Chloride 0.9% 100 ml @ 200 mls/ hr IV Q12 [facility] Rx#:[id number] Oral 300 / 300 Output: Void Amount 100 / 100 # of times incontinent of urine 2 / 2 2 / 2 Other: # Voids 1 Exam: Constitutional; Afebrile, not in distress, post ictal drowsiness, sleeping. Neck- Midline trachea, supple Respiratory system: Air Entry equal on both sides, No crackles or wheezing, no rhonchi. CVS- Rate rhythm regular, S1,S2 heard, no gallop, no rub. Abdomen- Soft nontender abdomen, no organomegaly, no tenderness, no guarding or rigidity, ADDICTION NURSE- AOOx0, Medical - PN: Obj Da - Labs CBC & Chem 7: 02/20/18 10:38 02/20/18 10:38 Labs: Abnormal Lab Results 02/20/18 02/20/18 02/20/18 10:44 10:38 10:38 WBC 23.1 H RBC Hgb 10.9 L Hct 33.5 L MCV RDW 18.1 H Gran % 84.1 H Lymph % (Auto) 10.1 L Gran # 19.4 H Lymph # (Auto) Scurry # (Auto) 1.3 H Seg Neutrophils % Lymphocytes % RBC Morphology Polychromasia Hypochromasia Anisocytosis Microcytosis Ovalocytes Sodium 124 L Chloride 85 L Carbon Dioxide Anion Gap 17.0 H Creatinine Glucose 128 H Phosphorus Magnesium 1.5 L AST 40 H Lactate Dehydrogenase 267 H Total Protein Globulin Prolactin 33.2 H Urine Protein Urine Ketones Urine Occult Blood Urine Nitrate Ur Leukocyte Esterase Urine RBC Urine WBC Urine Bacteria 02/20/18 02/20/18 02/19/18 03:50 03:50 03:40 WBC 15.2 H RBC 3.64 L Hgb 9.5 L Hct 28.6 L MCV 78.7 L RDW 17.9 H Gran % Lymph % (Auto) Gran # Lymph # (Auto) [place] # (Auto) Seg Neutrophils % 84 H Lymphocytes % 14 L RBC Morphology Abnorm A Polychromasia Few A Hypochromasia Anisocytosis 1+ A Microcytosis 1+ A Ovalocytes Few A Sodium 126 L 131 L Chloride 87 L 95 L Carbon Dioxide 21 L Anion Gap Creatinine Glucose Phosphorus 2.5 L 2.0 L Magnesium 1.5 L AST Lactate Dehydrogenase 272 H 258 H Total Protein 5.3 L 5.5 L Globulin 2.1 L Prolactin Urine Protein Urine Ketones Urine Occult Blood Urine Nitrate Ur Leukocyte Esterase Urine RBC Urine WBC Urine Bacteria 02/19/18 02/18/18 02/18/18 03:40 03:45 03:45 WBC 15.9 H 15.8 H RBC 3.86 L Hgb 10.0 L 10.6 L Hct 30.5 L 32.3 L MCV 79.1 L 79.7 L RDW 18.0 H 17.4 H Gran % Lymph % (Auto) Gran # Lymph # (Auto) [place] # (Auto) Seg Neutrophils % 89 H 89 H Lymphocytes % 1 L 8 L RBC Morphology Abnorm A Abnorm A Polychromasia Hypochromasia 1+ A Anisocytosis 1+ A 1+ A Microcytosis 1+ A 1+ A Ovalocytes Sodium 129 L Chloride 94 L Carbon Dioxide Anion Gap Creatinine Glucose 106 H Phosphorus 2.6 L Magnesium AST Lactate Dehydrogenase Total Protein Globulin Prolactin Urine Protein Urine Ketones Urine Occult Blood Urine Nitrate Ur Leukocyte Esterase Urine RBC Urine WBC Urine Bacteria 02/17/18 02/17/18 02/17/18 22:00 19:07 19:07 WBC 12.6 H RBC Hgb 11.5 L Hct 34.6 L MCV 78.8 L RDW 17.5 H Gran % 84.9 H Lymph % (Auto) 10.4 L Gran # 10.7 H Lymph # (Auto) 1.3 L [place] # (Auto) Seg Neutrophils % Lymphocytes % RBC Morphology Polychromasia Hypochromasia Anisocytosis Microcytosis Ovalocytes Sodium 130 L Chloride 90 L Carbon Dioxide Anion Gap Creatinine 1.3 H Glucose 127 H Phosphorus Magnesium AST Lactate Dehydrogenase Total Protein Globulin Prolactin Urine Protein 100 A Urine Ketones 20 A Urine Occult Blood 0.03 A Urine Nitrate Pos A Ur Leukocyte Esterase 500 A Urine RBC 25 H Urine WBC > 182 H Urine Bacteria Many A Meds: Medications Acetaminophen (Tylenol) 650 mg PO Q4-6HP PRN PRN Reason: PAIN/FEVER > 101 Last Admin: 02/20/18 09:12 Dose: 650 mg Hydrocodone Bitart/Acetaminophen ([place] 5/325mg) 1 tab PO Q4HP PRN PRN Reason: moderate pain Albuterol/Ipratropium (Duoneb) 3 ml NEB Q4HRT [facility] Last Admin: 02/20/18 10:51 Dose: Not Given Aspirin (Aspirin) 81 mg PO DAILY [facility] Last Admin: 02/20/18 09:12 Dose: 81 mg Ceftriaxone Sodium (Rocephin) 1 gm IV DAILY [facility] Last Admin: 02/20/18 11:13 Dose: 1 gm Clopidogrel Bisulfate (Plavix) 75 mg PO DAILY [facility] Last Admin: 02/20/18 09:12 Dose: 75 mg Docusate Sodium (Colace) 100 mg PO BID [facility] Last Admin: 02/20/18 09:12 Dose: 100 mg Donepezil HCl (Aricept) 10 mg PO HS [facility] Last Admin: 02/19/18 21:21 Dose: 10 mg Enoxaparin Sodium (Lovenox) 30 mg SQ DAILY [facility] Last Admin: 02/20/18 09:12 Dose: 30 mg Guaifenesin/Codeine Phosphate (Robitussin Ac) 10 ml PO Q4HP PRN PRN Reason: Cough Hydromorphone HCl (Dilaudid) 0 mg IV Q4HP PRN PRN Reason: PAIN LEVEL > 6 Magnesium Sulfate (Magnesium Sulfate) 2 gm in 50 mls @ 50 mls/hr IV UD PRN PRN Reason: MG = or < 1.7 Acetaminophen (Ofirmev) 1,000 mg in 100 mls @ 200 mls/hr IV Q6HP PRN PRN Reason: PAIN/FEVER > 101 Sodium Chloride (Sodium Chloride 0.9%) 1,000 mls @ 100 mls/hr IV .Q10H [facility] Stop: 02/20/18 20:29 Last Admin: 02/20/18 11:09 Dose: 100 mls/hr Levetiracetam 500 mg/ Sodium (Chloride) 105 mls @ 200 mls/hr IV Q12 [facility] Last Infusion: 02/20/18 11:50 Dose: Infused Iron Carb/Multivit/Glynn/Folic Acid (Multivitamin W/Minerals) 1 tab PO DAILY [facility] Last Admin: 02/20/18 09:12 Dose: 1 tab Lorazepam (Ativan) 1 mg IV Q2HP PRN PRN Reason: Seizure Activity Ondansetron HCl (Zofran) 4 mg IV Q4-6HP PRN PRN Reason: Nausea And Vomiting Last Admin: 02/20/18 10:41 Dose: 4 mg Pantoprazole Sodium (Protonix) 40 mg IV BIDAC [facility] Last Admin: 02/20/18 11:01 Dose: 40 mg Polyethylene Glycol (Miralax) 17 gm PO DAILYP PRN PRN Reason: Constipation Potassium Chloride (Klor-Con) 40 meq PO DAILYP PRN PRN Reason: K+ < 3.5 Senna/Docusate Sodium (Senna Plus Tablet) 1 tab PO HS [facility] Last Admin: 02/19/18 21:21 Dose: 1 tab Sodium Chloride (Saline Flush) 10 ml IV Q8 [facility] Last Admin: 02/20/18 13:46 Dose: Not Given Trazodone HCl (Desyrel) 50 mg PO HSP PRN PRN Reason: Insomnia Medical - PN: A/P - Time Spent With Patient Total time spent is greater than 50% in coordination of care (as documented) at patient's floor/unit and/or counseling patient: - Narrative A/P Narrative: A/P Left hip fracture- pt to have sx by othro today, pain adequately controlled, on tylenol, hydrocodone, prn dilaudid UTI/Leucocytosis - wbc worsening, due to seizure? worsening uti, d/c cipro start on rocephin. Hypomagnesemia- mg 1.5 replace vomiting- post ictal, iv ppi, iv zofran Seizure disorder- h/o few ER visits for ams, change in behavoir, ? seizure, clinically this time it was a seizure, IV keppra started, outpt neurology eval, Multiple TIA/ lacunar infarcts- on dual antiplatlet agents continue asme DVT - lovnoex ,30mg daily Dementia- home meds resumed, able to communicate somewhat, ST Eval h/o CVA- stable conitnue asp, plavix post op Medical - PN: Qual - VTE Deep Vein Thrombosis/Pulmonary Embolism Present on Admission: No
--- NOTE | 2018-02-20 14:37 | XRay Report ---
CLINICAL INFORMATION: Emesis and abdominal pain COMPARISON: None. FINDINGS: NG tube overlies the gastric body. Stool gas pattern is normal. No free air, soft tissue mass or organomegaly. IMPRESSION: No acute disease. NG tube overlies the gastric body Interpreted and Authenticated by: Mckinley Rodas 02/20/18
[2018-02-20] MEDS: DONEPEZIL 10 MG TABLET PO SCH (20:25)
[2018-02-20] MEDS: SENNOSIDES/DOCUSATE SODIUM 1 TAB TABLET PO SCH (20:25)
[2018-02-21] MEDS: IPRATROPIUM/ALBUTEROL 3 ML AMPUL.NEB NEB SCH ×6 (03:10→23:36)
[2018-02-21] MEDS: 0.9 % SODIUM CHLORIDE 10 ML SYRINGE IV SCH ×3 (05:25→20:27)
[2018-02-21 06:10] LABS: ALT/SGPT 19 U/l (0-40); Albumin/Globulin Ratio 1.3 (1.0-2.3); Alkaline Phosphatase 64 U/L (39-117); Bilirubin,Direct < 0.2 mg/dL (0.0-0.3); Blood Urea Nitrogen 13 mg/dl (8-23); Gamma Glutamyl Transpeptidase 7 U/L (5-36); Uric Acid 3.7 mg/dL (2.5-8.0)
[2018-02-21 06:17] LABS: Mean Cell Volume 78.9 fL (80.0-100.0); Platelet Count 273 K/mcL (140-440); RBC 3.35 M/mcL (4.00-5.20); Red Cell Distribution Width 17.8 % (11.5-14.5)
[2018-02-21] MEDS: PANTOPRAZOLE 40 MG VIAL IV SCH ×2 (07:13→16:15)
[2018-02-21 08:26] LABS: Anisocytosis 1+ (NONE SEEN); Eosinophils % (Manual) 1 % (0-7); Lymphocytes % 12 % (15-49); Monocytes % (Manual) 2 % (1-12); Ovalocytes FEW (NONE SEEN); Platelet Estimate NORMAL (NORMAL); RBC Morphology ABNORM (NORMAL); Segmented Neutrophils % 85 % (38-78)
--- NOTE | 2018-02-21 08:32 | Orthopedic Progress Note ---
Subjective Patient information: Note initiated : 02/21/18 at 8:30 am Service Date, if different from initiated Date: [] Patient: Melly Bustos 82 y/o F admitted on 02/17/18 for Fall, Decreased Appetite, Weakness/Left Hip Fx. Chief Complaint: [RN reports some seizure activity within the last 24 hours however standard precaution for safety. Otherwise, pt has remained stable and stated she is comfortable. ] Principal diagnosis: hip fracture Objective Vital signs: Vital Signs Temp Pulse Pulse Resp BP BP Pulse Ox 02/21/18 07:19 90 16 02/21/18 07:13 98.2 F 85 16 126/75 95 02/21/18 03:20 99.0 F 91 H 16 124/78 99 02/20/18 23:10 86 16 02/20/18 23:00 98.3 F 85 20 109/62 97 02/20/18 19:39 86 16 97 02/20/18 19:37 87 16 02/20/18 19:00 98.5 F 94 H 20 102/62 95 02/20/18 15:37 97.9 F 104 H 16 133/85 96 02/20/18 15:32 92 H 18 02/20/18 12:46 97.5 F 81 14 118/75 97 02/20/18 11:29 65 16 112/67 94 02/20/18 10:52 57 L 18 95 02/20/18 10:30 81 104/64 94 Intake and Output 02/20/18 02/21/18 02/21/18 21:59 05:59 13:59 Intake Total 900 / 900 Output Total 276 / 276 Balance -246 / -246 896 / 896 - Intake: Oral 900 / 900 Output: Gastric Drainage 275 / 275 Right Nare NG/OG 275 / 275 # of times incontinent of urine Other: Meal applesauce cup Percent of Meal Consumed 100% Feeding Ability Assist with Tray Set Up Stool Size Small Stool Color Brown Stool Consistency Soft Formed Weight 119 lb 12.8 oz Intake & Output: Intake & Output 02/20/18 02/21/18 02/21/18 21:59 05:59 13:59 Intake Total 900 / 900 Output Total 276 / 276 Balance -246 / -246 896 / 896 -1 Weight 119 lb 12.8 oz Intake: Oral 900 / 900 Output: Gastric Drainage 275 / 275 Right Nare NG/OG 275 / 275 # of times incontinent of urine Other: Meal applesauce cup Percent of Meal Consumed 100% Feeding Ability Assist with Tray Set Up Stool Size Small Stool Color Brown Stool Consistency Soft Formed Incision: Yes healing Incision clean and dry: Yes Dressing: Yes clean, Yes dry Weight bearing status: as tolerated Neurological exam IM: Yes motor sensory intact, Yes neurovascular intact Extremities exam IM: Yes Foot pink and warm, Yes neurovascular intact - Labs CBC & BMP: 02/21/18 04:03 02/21/18 04:03 Labs: Orthopedic Labs 02/18/18 10:17 POC PT 12.8 POC INR 1.1 02/21/18 02/20/18 02/20/18 04:03 10:38 03:50 Hgb 8.7 L 10.9 L 9.5 L Hct 26.4 L 33.5 L 28.6 L 02/19/18 02/18/18 02/17/18 03:40 03:45 19:07 Hgb 10.0 L 10.6 L 11.5 L Hct 30.5 L 32.3 L 34.6 L Assessment and Plan (1) History of hemiarthroplasty of hip The patient has been educated (via hotel staff member)regarding dressing care, Physical Therapy recommendations, home exercises, restrictions, and follow up appointments. The patient has had all necessary DME prescribed. The patient has remained relatively stable during their hospital course Hospitalist to complete d/c for SNF when medically stable. Status: Acute (2) Hip fracture, left Status: Acute Qualifiers: Encounter type: initial encounter Fracture type: closed Qualified Code(s) : S72.002A - Fracture of unspecified part of neck of left femur, initial encounter for closed fracture
[2018-02-21] MEDS: ENOXAPARIN 30 MG/0.3 ML SYRINGE SQ SCH (09:00)
[2018-02-21] MEDS: MULTIVIT,THER IRON,CA,FA & MIN 1 TABLET PO SCH (09:01)
[2018-02-21] MEDS: ASPIRIN 81 MG TAB.CHEW PO SCH (09:01)
[2018-02-21] MEDS: levETIRAcetam 500 MG in 0.9 % SODIUM CHLORIDE 100 ML IV SCH ×2 (09:01→20:26)
[2018-02-21] MEDS: cefTRIAXone 1 GM VIAL IV SCH (09:01)
[2018-02-21] MEDS: POLYETHYLENE GLYCOL 3350 17 GM PACKET PO PRN (09:01)
[2018-02-21] MEDS: DOCUSATE SODIUM 100 MG CAPSULE PO SCH ×2 (09:01→20:26)
[2018-02-21] MEDS: CLOPIDOGREL 75 MG TABLET PO SCH (09:02)
[2018-02-21] MEDS: ACETAMINOPHEN 325 MG TABLET PO PRN (09:02)
--- NOTE | 2018-02-21 14:21 | Internal Med Progress Note ---
Medical - PN: Subj Patient information: Note initiated : 02/21/18 at 2:18 pm Service Date, if different from initiated Date: [] Patient: Melly Bustos a 82 y/o F admitted on 02/17/18 for Fall, Decreased Appetite, Weakness/Left Hip Fx. Chief Complaint: [] Interval history: Ms. Bustos is a 82 year old F with a history of advanced dementia who lives with her . She fell this afternoon and was discovered by her on the floor. Patient was alert and in no loose consciousness however the fall was not witnessed. She apparently lost balance. Patient is a poor historian due to underlying dementia exact precipitant could not be identified. She was brought to [place] ER due to left hip pain. Initial workup in the ER revealed subcapital left hip fracture and orthopedics were consulted. Hospitalist service was consulted for admission. Evaluation patient is accompanied with her son Travis. He was able to anastomose the questions. Patient is essentially nonverbal. Her dementia has advanced significantly and patient is usually noncommunicative. She has recently stopped eating over the last few days. She only takes liquid diet including boost Ensure. Other than that son does not endorse recent fever, diarrhea, dysuria or headache. He does endorse to couple of falls in the last year and she is barely able to walk without assistance or using a grab bar 02/18 Patient seen examined, no acute overnight issues, pt seen by ortho, family opted for surgical intervention, likely this afternoon. Pt was awake this afternoon, denies any complaints. 02/19 patient seen examined, no acute overnight issues, pt sitting in chair had her breakfast, post op day 1 Denies any complaints, able to speak and follow some commands start on lovenox low dose 30mg daily for DVT prophylaxis, working with PT ortho following cipro for UTI cultures pending. 02/20 Pt seen examined, this AM was doing well, later in artur morning she became unreponsive ,stiff, with rolling of eyes backwards. slowly recovered, follwoed by significant vomiting, and food eaten yesterday also coming out. Head CT neg for acute issues pt prolactin elevated, clinically seizure IV keppra ordered NG tube placed given persistent vomiting, family at bedside, updated 02/21 Patient seen and examined, no acute overnight events. No more seizure episodes reported. Workup negative. Labs show improved WBC count. Urine culture shows pansensitive E. coli. Continue physical therapy, anticipate discharge to rehab tomorrow. Pertinent ROS: Denies headache, dizziness Denies chest pain, palpitations Denies cough or shortness of breath Denies abdominal pain, nausea or vomiting. - Constitutional Vitals: Vital Signs Temp Pulse Resp BP Pulse Ox 98 F 96 H 20 97/61 97 02/21/18 11:29 02/21/18 11:29 02/21/18 11:29 02/21/18 11:29 02/21/18 11:29 Period Temp Pulse Resp BP Sys/Vargas Pulse Ox Last 24 Hr 97.9 F-99.0 F 85-104 16-20 97-133/61-85 95-99 Intake and Output 02/21/18 02/21/18 02/21/18 05:59 13:59 21:59 Intake Total 900 / 900 225 / 225 Output Total / 2 / 2 Balance 896 / 896 223 / 223 Weight 119 lb 12.8 oz Intake & Output: Intake & Output 02/21/18 02/21/18 02/21/18 05:59 13:59 21:59 Intake Total 900 / 900 225 / 225 Output Total 2 / 2 Balance 896 / 896 223 / 223 Weight 119 lb 12.8 oz Intake: IV 105 / 105 Keppra 500 mg In Sodium 105 / 105 Chloride 0.9% 100 ml @ 200 mls/ hr IV Q12 [facility] Rx#:[id number] Oral 900 / 900 120 / 120 Output: # of times incontinent of urine 2 Other: Meal Lunch Percent of Meal Consumed 50% Feeding Ability Total Assistance Exam: Constitutional; Afebrile, cooperative, alert, not in distress. Respiratory system: Air Entry equal on both sides, No crackles or wheezing, no rhonchi. CVS- Rate rhythm regular, S1,S2 heard, no gallop, no rub. Abdomen- Soft nontender abdomen, no organomegaly, no tenderness, no guarding or rigidity, SIGNS CLEANER- AOOx1, moving all extremities, no gross focal deficit noted. Medical - PN: Obj Da - Labs CBC & Chem 7: 02/21/18 04:03 02/21/18 04:03 Labs: Abnormal Lab Results 02/21/18 02/21/18 02/20/18 04:03 04:03 10:44 WBC RBC 3.35 L Hgb 8.7 L Hct 26.4 L MCV 78.9 L RDW 17.8 H Gran % Lymph % (Auto) Gran # Archer # (Auto) Seg Neutrophils % 85 H Lymphocytes % 12 L RBC Morphology Abnorm A Polychromasia Hypochromasia Poikilocytosis Few A Anisocytosis 1+ A Microcytosis 1+ A Ovalocytes Few A RBC Fragments Few A Sodium 129 L Chloride 93 L Carbon Dioxide Anion Gap Glucose Calcium 8.4 L Phosphorus Magnesium AST Lactate Dehydrogenase Total Protein 5.3 L Albumin 3.0 L Globulin Prolactin 33.2 H 02/20/18 02/20/18 02/20/18 10:38 10:38 03:50 WBC 23.1 H RBC Hgb 10.9 L Hct 33.5 L MCV RDW 18.1 H Gran % 84.1 H Lymph % (Auto) 10.1 L Gran # 19.4 H Archer # (Auto) 1.3 H Seg Neutrophils % Lymphocytes % RBC Morphology Polychromasia Hypochromasia Poikilocytosis Anisocytosis Microcytosis Ovalocytes RBC Fragments Sodium 124 L 126 L Chloride 85 L 87 L Carbon Dioxide Anion Gap 17.0 H Glucose 128 H Calcium Phosphorus 2.5 L Magnesium 1.5 L 1.5 L AST 40 H Lactate Dehydrogenase 267 H 272 H Total Protein 5.3 L Albumin Globulin 2.1 L Prolactin 02/20/18 02/19/18 02/19/18 03:50 03:40 03:40 WBC 15.2 H 15.9 H RBC 3.64 L 3.86 L Hgb 9.5 L 10.0 L Hct 28.6 L 30.5 L MCV 78.7 L 79.1 L RDW 17.9 H 18.0 H Gran % Lymph % (Auto) Gran # Archer # (Auto) Seg Neutrophils % 84 H 89 H Lymphocytes % 14 L 1 L RBC Morphology Abnorm A Abnorm A Polychromasia Few A Hypochromasia 1+ A Poikilocytosis Anisocytosis 1+ A 1+ A Microcytosis 1+ A 1+ A Ovalocytes Few A RBC Fragments Sodium 131 L Chloride 95 L Carbon Dioxide 21 L Anion Gap Glucose Calcium Phosphorus 2.0 L Magnesium AST Lactate Dehydrogenase 258 H Total Protein 5.5 L Albumin Globulin Prolactin Meds: Medications Acetaminophen (Tylenol) 650 mg PO Q4-6HP PRN PRN Reason: PAIN/FEVER > 101 Last Admin: 02/21/18 09:02 Dose: 650 mg Hydrocodone Bitart/Acetaminophen ([place] 5/325mg) 1 tab PO Q4HP PRN PRN Reason: moderate pain Albuterol/Ipratropium (Duoneb) 3 ml NEB Q4HRT [facility] Last Admin: 02/21/18 11:32 Dose: Not Given Aspirin (Aspirin) 81 mg PO DAILY [facility] Last Admin: 02/21/18 09:01 Dose: 81 mg Ceftriaxone Sodium (Rocephin) 1 gm IV DAILY [facility] Last Admin: 02/21/18 09:01 Dose: 1 gm Clopidogrel Bisulfate (Plavix) 75 mg PO DAILY [facility] Last Admin: 02/21/18 09:02 Dose: 75 mg Docusate Sodium (Colace) 100 mg PO BID [facility] Last Admin: 02/21/18 09:01 Dose: 100 mg Donepezil HCl (Aricept) 10 mg PO [facility] Last Admin: 02/20/18 20:25 Dose: 10 mg Enoxaparin Sodium (Lovenox) 30 mg SQ DAILY [facility] Last Admin: 02/21/18 09:00 Dose: 30 mg Guaifenesin/Codeine Phosphate (Robitussin Ac) 10 ml PO Q4HP PRN PRN Reason: Cough Hydromorphone HCl (Dilaudid) 0 mg IV Q4HP PRN PRN Reason: PAIN LEVEL > 6 Magnesium Sulfate (Magnesium Sulfate) 2 gm in 50 mls @ 50 mls/hr IV UD PRN PRN Reason: MG = or < 1.7 Acetaminophen (Ofirmev) 1,000 mg in 100 mls @ 200 mls/hr IV Q6HP PRN PRN Reason: PAIN/FEVER > 101 Levetiracetam 500 mg/ Sodium (Chloride) 105 mls @ 200 mls/hr IV Q12 [facility] Last Infusion: 02/21/18 09:45 Dose: Infused Iron Carb/Multivit/Elsie/Folic Acid (Multivitamin W/Minerals) 1 tab PO DAILY [facility] Last Admin: 02/21/18 09:01 Dose: 1 tab Lorazepam (Ativan) 1 mg IV Q2HP PRN PRN Reason: Seizure Activity Ondansetron HCl (Zofran) 4 mg IV Q4-6HP PRN PRN Reason: Nausea And Vomiting Last Admin: 02/20/18 10:41 Dose: 4 mg Pantoprazole Sodium (Protonix) 40 mg IV BIDAC [facility] Last Admin: 02/21/18 07:13 Dose: 40 mg Polyethylene Glycol (Miralax) 17 gm PO DAILYP PRN PRN Reason: Constipation Last Admin: 02/21/18 09:01 Dose: 17 gm Potassium Chloride (Klor-Con) 40 meq PO DAILYP PRN PRN Reason: K+ < 3.5 Senna/Docusate Sodium (Senna Plus Tablet) 1 tab PO HS [facility] Last Admin: 02/20/18 20:25 Dose: 1 tab Sodium Chloride (Saline Flush) 10 ml IV Q8 [facility] Last Admin: 02/21/18 05:25 Dose: 10 ml Trazodone HCl (Desyrel) 50 mg PO HSP PRN PRN Reason: Insomnia Medical - PN: A/P - Time Spent With Patient Total time spent is greater than 50% in coordination of care (as documented) at patient's floor/unit and/or counseling patient: - Narrative A/P Narrative: A/P Left hip fracture- pt to have sx by othro today, pain adequately controlled, on tylenol, hydrocodone, prn dilaudid UTI/Leucocytosis - wbc back to normal Hypomagnesemia resolved Hyponatremia improved vomiting- post ictal, iv ppi, iv zofran Seizure disorder- h/o few ER visits for ams, change in behavoir, ? seizure, clinically this time it was a seizure, IV keppra started, outpt neurology eval, switch to oral keppra at discharge Multiple TIA/ lacunar infarcts- on dual antiplatlet agents continue asme DVT - lovnoex ,30mg daily Dementia- home meds resumed, able to communicate somewhat, ST Eval h/o CVA- stable conitnue asp, plavix post op Medical - PN: Qual - VTE Deep Vein Thrombosis/Pulmonary Embolism Present on Admission: No
[2018-02-21] MEDS: DONEPEZIL 10 MG TABLET PO SCH (20:26)
[2018-02-21] MEDS: SENNOSIDES/DOCUSATE SODIUM 1 TAB TABLET PO SCH (20:27)
[2018-02-22] MEDS: IPRATROPIUM/ALBUTEROL 3 ML AMPUL.NEB NEB SCH ×3 (03:35→11:01)
[2018-02-22 05:29] LABS: Mean Cell Volume 78.9 fL (80.0-100.0); Mean Corpuscular HGB Conc 32.9 g/dL (31.0-36.0); Mean Corpuscular Hemoglobin 25.9 pg (26.0-34.0); Platelet Count 287 K/mcL (140-440); RBC 3.24 M/mcL (4.00-5.20); Red Cell Distribution Width 17.6 % (11.5-14.5)
[2018-02-22] MEDS: 0.9 % SODIUM CHLORIDE 10 ML SYRINGE IV SCH (06:04)
[2018-02-22 06:06] LABS: ALT/SGPT 18 U/l (0-40); Albumin/Globulin Ratio 1.4 (1.0-2.3); Alkaline Phosphatase 70 U/L (39-117); Bilirubin,Direct < 0.2 mg/dL (0.0-0.3); Blood Urea Nitrogen 11 mg/dl (8-23); Gamma Glutamyl Transpeptidase 8 U/L (5-36); Uric Acid 3.5 mg/dL (2.5-8.0)
[2018-02-22 09:29] LABS: Anisocytosis 1+ (NONE SEEN); Band Neutrophils % 2 % (0-10); Eosinophils % (Manual) 1 % (0-7); Hypochromasia 1+ (NONE SEEN); Lymphocytes % 23 % (15-49); Monocytes % (Manual) 1 % (1-12); Myelocytes % 1 % (0-0); Platelet Estimate NORMAL (NORMAL); RBC Morphology ABNORM (NORMAL); Segmented Neutrophils % 72 % (38-78)
[2018-02-22] MEDS: MULTIVIT,THER IRON,CA,FA & MIN 1 TABLET PO SCH (09:39)
[2018-02-22] MEDS: cefTRIAXone 1 GM VIAL IV SCH (09:39)
[2018-02-22] MEDS: PANTOPRAZOLE 40 MG VIAL IV SCH (09:39)
[2018-02-22] MEDS: ASPIRIN 81 MG TAB.CHEW PO SCH (09:39)
[2018-02-22] MEDS: ENOXAPARIN 30 MG/0.3 ML SYRINGE SQ SCH (09:39)
[2018-02-22] MEDS: CLOPIDOGREL 75 MG TABLET PO SCH (09:39)
[2018-02-22] MEDS: DOCUSATE SODIUM 100 MG CAPSULE PO SCH (09:39)
[2018-02-22] MEDS: POLYETHYLENE GLYCOL 3350 17 GM PACKET PO PRN (09:40)
[2018-02-22] MEDS: levETIRAcetam 500 MG in 0.9 % SODIUM CHLORIDE 100 ML IV SCH (09:42)
--- NOTE | 2018-02-22 11:35 | Discharge Summary ---
Medical - DS: Prov Patient information: Note initiated : 02/22/18 at 11:24 am Service Date, if different from initiated Date: [] Patient: Melly Bustos 82 y/o F admitted on 02/17/18 for Fall, Decreased Appetite, Weakness/Left Hip Fx. Chief Complaint: [] Date of admission: 02/17/18 20:20 Discharge date: 02/22/18 Primary care physician: Celestina Branham Admitting clinician: Fazal Toussaint Consults: 02/17/18 18:45 Consult to Physician [CONS] Stat Comment: Consulting Provider: Ganesh Bianchi Reason For Exam: Physician to Consult Discharging clinician: Raghav Duran Medical - DS: Meds - Discharge Medications Prescriptions: Docusate Sodium [Colace] 100 mg PO BID #60 cap Enoxaparin [Lovenox] 40 mg SQ DAILY #28 syringe HYDROcodone/APAP 5/325MG [Scio 5-325Mg] 1 tab PO Q4HP PRN #60 tab PRN Reason: moderate pain levETIRAcetam [Keppra] 500 mg PO BID #60 tab Levofloxacin [Levaquin] 500 mg PO DAILY #5 tab Active and Home Medications: Home Medications Clopidogrel 75 mg PO DAILY 04/02/15 [History Confirmed 02/17/18 Last Taken Unknown] Donepezil HCl [Donepezil HCl Odt] 10 mg PO DAILY 04/02/15 [History Confirmed Last Taken Unknown] Aspirin [Adult Low Dose Aspirin EC] 81 mg PO DAILY 02/17/18 [History Confirmed 02/17/18 Last Taken Unknown] Docusate Sodium [Colace] 100 mg PO BID #60 cap 02/21/18 [Rx Last Taken Unknown] HYDROcodone/APAP 5/325MG [Scio 5-325Mg] 1 tab PO Q4HP PRN #60 tab 02/21/18 [Rx Last Taken Unknown] Medical - DS: Hosp Hospital course: Ms. Bustos is a 82 year old F with a history of advanced dementia who lives with her . She fell on the day of admission, afternoon and was discovered by her on the floor. Patient was alert and in no loose consciousness however the fall was not witnessed. She apparently lost balance. Patient is a poor historian due to underlying dementia exact precipitant could not be identified. She was brought to [facility] ER due to left hip pain. Initial workup in the ER revealed subcapital left hip fracture and orthopedics were consulted. Hospitalist service was consulted for admission. Evaluation patient is accompanied with her son Travis. He was able to anastomose the questions. Patient is essentially nonverbal. Her dementia has advanced significantly and patient is usually noncommunicative. She has recently stopped eating over the last few days. She only takes liquid diet including boost Ensure. Other than that son does not endorse recent fever, diarrhea, dysuria or headache. He does endorse to couple of falls in the last year and she is barely able to walk without assistance or using a grab bar Hip fracture- Seen by ortho s/o arthroplasty. Stable for d/c from their stand point, pt unable to return home will need to go to rehabilitation. Seizure- During the hospital stay the patient had one episode of altered mental status, and generalized rigidity, rolling of eyes, Head CT was negative for acute issues, the patient has had few episodes of ER visits with AMS which was attributed to TIA, she is on dual anti platlet agents. We have started her on keppra for same and she has not had any further episode inpatient. She will need to be evaluated by a neurologist to further ascertain the cause of seizures and further management. UTI- Ua abnl, elevated wbc, ecoli sensitive to rocephin, cipro, levofloxacin, the patient will be discharged on oral abx x 5 more days Anemia- Hb 8.7, gradual drop, likely post op, the aptient has low mcv, Patient would benefit from monitoring her hb status 1 week after discharge, and initiation of workup for anemia if it continues to drop. I will leave this decision to PCP. The rest of stay in the hospital was uneventful, no changes in [facility] home meds except as listed above. Discharge diagnosis: Hip fracture, Seizure, UTI - Time Spent with Patient Total time spent providing and/or coordinating discharge services: Greater than 30 minutes Medical - DS: Exam - Constitutional Vitals: Vital Signs Temp Pulse Pulse Resp BP BP Pulse Ox 02/22/18 11:05 70 16 02/22/18 07:21 98 02/22/18 07:17 76 18 02/22/18 07:14 98.1 F 16 146/82 98 02/22/18 03:35 98.3 F 80 16 145/75 96 02/21/18 23:47 98.3 F 75 20 125/66 97 02/21/18 23:35 76 16 02/21/18 20:00 97.6 F 99 H 20 110/60 96 02/21/18 18:49 87 14 02/21/18 15:16 98 F 81 20 133/70 99 02/21/18 15:11 73 16 02/21/18 11:29 98 F 96 H 20 97/61 97 Intake and Output 02/21/18 02/22/18 02/22/18 21:59 05:59 13:59 Intake Total 105 / 105 350 / 350 200 / 200 Output Total 2 / 2 3 / 3 Balance 103 / 103 347 / 347 199 / 199 Intake: IV 105 / 105 Keppra 500 mg In Sodium 105 / 105 Chloride 0.9% 100 ml @ 200 mls/ hr IV Q12 [facility] Rx#:[id number] Oral 350 / 350 200 / 200 Output: # of times incontinent of urine 2 / 2 3 3 Other: Meal applesauce cup Breakfast Percent of Meal Consumed 100% 50% Feeding Ability Assist with Tray Set Up Stool Size Moderate Stool Color Brown Stool Consistency Soft Formed # Voids 1 # Bowel Movements 1 Weight 121 lb 1.6 oz Additional comments: Constitutional; Afebrile, cooperative, alert, not in distress. Neck- Midline trachea, supple Respiratory system: Air Entry equal on both sides, No crackles or wheezing, no rhonchi. CVS- Rate rhythm regular, S1,S2 heard, no gallop, no rub. 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 Medical - DS: Data Labs on day of discharge: Labs from last 24 hours 02/22/18 02/22/18 03:50 03:50 WBC 8.1 RBC 3.24 L Hgb 8.4 L Hct 25.6 L MCV 78.9 L MCH 25.9 L MCHC 32.9 RDW 17.6 H Plt Count 287 MPV 8.3 Total Counted 100 Seg Neutrophils % 72 Band Neutrophils % 2 Lymphocytes % 23 Monocytes % (Manual) 1 Eosinophils % (Manual) 1 Myelocytes % 1 H Platelet Estimate Normal RBC Morphology Abnorm A Hypochromasia 1+ A Anisocytosis 1+ A Microcytosis 1+ A Sodium 128 L Potassium 3.9 Chloride 92 L Carbon Dioxide 23 Anion Gap 13.0 BUN 11 Creatinine 0.9 GFR Calculation 60 Glucose 90 Uric Acid 3.5 Calcium 8.4 L Phosphorus 3.3 Magnesium 1.7 Total Bilirubin 0.7 Direct Bilirubin < 0.2 GGT 8 AST 29 ALT 18 Alkaline Phosphatase 70 Lactate Dehydrogenase 250 Total Protein 5.1 L Albumin 3.0 L Globulin 2.1 L Albumin/Globulin Ratio 1.4 Triglycerides 89 Medical - DS: A/P - Patient/Caregiver Discharge Instructions Activity: increase activity as tolerated Diet: Regular Diet Additional Instructions: Follow up with PCP in 1 week, recommend PCP to check CBC/ CMP in 1 week for monitoring Follow up with neurology in 2-[address] Varun Mcgovern Wound care per ortho protocol Weight bearing as tolerated Prescriptions: Docusate Sodium [Colace] 100 mg PO BID #60 cap HYDROcodone/APAP 5/325MG [Scio 5-325Mg] 1 tab PO Q4HP PRN #60 tab PRN Reason: moderate pain - Follow up Plan Follow up with: Celestina Branham MD [Primary Care Provider] - Disposition: Xfer SNF Prognosis: Fair Rehab Potential: Fair I certify that the patient requires SNF services: Yes Overall status at discharge: patient is progressing back to baseline Medical - DS: Qual - VTE Deep Vein Thrombosis/Pulmonary Embolism Present on Admission: No
== END 2018-02-22 13:00 | DRG 470 ==
LOC: ED 17:44 → MEDSUR 20:20
PROVIDERS: ADMIT Internal Medicine; ATTEND Internal Medicine
PROC: HEMIHIP (2018-02-18 14:49)